=== PATIENT | male | born 1955 | race Caucasian/White ===

== ENCOUNTER 2016-12-12 12:49 | Emergency (ER) | payer OTHER ==
[2016-12-12 13:09] VITALS: BP 117/68; RESP 18; TEMP 97.2
[2016-12-12] MEDS ORDERED: DIPH,PERTUS(ACELL)TETVAC-LF 0.5 ML VIAL IM ONE (13:16)
--- NOTE | 2016-12-12 13:47 | XR ---
EXAMINATION TYPE: XR hand complete LT DATE OF EXAM ORDERED: 12/12/2016 1:31 PM HISTORY: Pain. COMPARISON: None. 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 One surgical clip is present just distal to the metacarpal head of the fourth digit. No fracture or dislocation is seen. IMPRESSION: 1. NO ACUTE OSSEOUS LESION. 2. 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
--- NOTE | 2016-12-12 14:04 | ED ---
Wound/Laceration HPI - General Chief Complaint: Wound/Laceration Stated Complaint: Lac/ 2 fingers Time Seen by Provider: 12/12/16 13:11 Source: patient, RN notes reviewed Mode of arrival: ambulatory Limitations: no limitations - History of Present Illness Initial Comments: 61-year-old male presents to the emergency department with a chief complaint of left finger laceration. Patient states he cut his hand with a utility knife. Patient states that; left eye. Patient states that he noticed increased bleeding site. He should be seen. Patient denies any nausea vomiting fever chills with this. Patient denies any cough cold runny nose. Patient states he was concerned due to the bleeding. Patient denies any other symptoms at this time. Patient denies any recent fever, chills, shortness of breath, chest pain, back pain, abdominal pain, nausea vomiting, numbness or tingling, dysuria or hematuria, constipation or diarrhea, headaches or visual changes, or any other current symptoms. - Related Data Previous Rx's Medication Instructions Recorded Calamine/Zinc Oxide Lotion 1 applic TOPICAL TID 7 Days 12/12/16 [Calamine Lotion] predniSONE 50 mg PO DAILY #5 tab 12/12/16 Allergies Allergy/AdvReac Type Severity Reaction Status Date / Time No Known Allergies Allergy Verified 12/12/16 13:09 Review of Systems ROS Statement: Those systems with pertinent positive or pertinent negative responses have been documented in the HPI. ROS Other: All systems not noted in ROS Statement are negative. Past Medical History Past Medical History: No Reported History History of Any Multi-Drug Resistant Organisms: None Reported Past Surgical History: No Surgical Hx Reported Past Psychological History: No Psychological Hx Reported Smoking Status: Never smoker Past Alcohol Use History: None Reported Past Drug Use History: None Reported General Exam - General Exam Comments Initial Comments: General: The patient is awake and alert, in no distress, and does not appear acutely ill. Neck: The neck is supple, there is no tenderness. Cardiovascular: There is a regular rate and rhythm. No murmur, rub or gallop is appreciated. Respiratory: Lungs are clear to auscultation, respirations are non-labored, breath sounds are equal. No wheezes, stridor, rales, or rhonchi. Musculoskeletal: Sensation intact. 2+ pulses. Left upper joint. Patient has previous amputation to digit foreign 5. She appears to have a once every laceration to the distal aspect of digit number read. A 2 cm laceration to the distal aspect of digit #2. That does extend through the distal aspect of the nail. There is full range of motion. 5 out of 5 muscle strength testing. Neurological: CN II-XII intact, There are no obvious motor or sensory deficits. Coordination appears grossly intact. Speech is normal. Skin: Skin is warm and dry and she does appear to have a pruritic papular rash to the right wrist consistent with possible poison chiquita dermatitis. Psychiatric: Normal mood and affect. Limitations: no limitations Course Vital Signs 12/12/16 13:08 Temperature 97.2 F L Pulse Rate 74 Respiratory 18 Rate Blood Pressure 117/68 O2 Sat by Pulse 100 Oximetry Procedures - Procedures Initial comment: The skin was anesthetized with 1% lidocaine. The laceration was then cleansed with Betadine and irrigated with normal saline. The wound was inspected, and there was no evidence of injury to deep structures. No foreign body was noted in the wound. A total of 2 skin sutures were placed utilizing 5-0 nylon to a 1 cm laceration to the distal left third digit. The skin was anesthetized with 1% lidocaine. The laceration was then cleansed with Betadine and irrigated with normal saline. The wound was inspected, and there was no evidence of injury to deep structures. No foreign body was noted in the wound. A total of 5 skin sutures were placed utilizing 5-0 nylon to the distal aspect of the second left digit that is 2 cm in length. . Medical Decision Making - Medical Decision Making 61-year-old male presents emergency Department chief complaint of left finger laceration. Patient underwent suture care. We discussed return parameters and follow-up. Discussed outpatient questions. He stated he understood and he is in agreement the plan. He will be discharged home. - Radiology Data Radiology results: report reviewed, image reviewed Disposition Clinical Impression: Laceration of left index finger, Laceration of left middle finger, Poison chiquita dermatitis Disposition: HOME SELF-CARE Condition: Stable Instructions: Laceration (ED) Additional Instructions: Please use medication as discussed. Please follow up with family doctor if symptoms have not improved over the next two days. Please return to the emergency room if your symptoms increase or worsen or for any other concerns. Please return to the emergency room in 8-10 days to have sutures removed. Please leave wound covered for the first 24-48 hours and then leave open to air after that time. Please use clean soap and water to clean the suture area to prevent scabbing over the top of your sutures. Please watch for any signs of infection which may include but not limited to increased pain, swelling, redness , fever or chills. Please return to the emergency room if any signs of infection do occur. Please return to the emergency room for any other concerns or complications. Prescriptions: Calamine/Zinc Oxide Lotion [Calamine Lotion] 1 applic TOPICAL TID 7 Days predniSONE 50 mg PO DAILY #5 tab Referrals: Carmelita Smith MD [STAFF PHYSICIAN] - 1-2 days Time of Disposition: 14:03
[2016-12-12 14:13] VITALS: PULSE 80
== END 2016-12-12 14:13 | disposition home or self-care (01) ==
LOC: EC 12:49
DX: S61.213A Laceration without foreign body of left middle finger without damage to nail, initial encounter (principal); S61.211A Laceration without foreign body of left index finger without damage to nail, initial encounter; L23.7 Allergic contact dermatitis due to plants, except food; Z23 Encounter for immunization; W26.0XXA Contact with knife, initial encounter; Y92.009 Unspecified place in unspecified non-institutional (private) residence as the place of occurrence of the external cause
CPT/HCPCS: 12002; 90471; 90715; 99283

== ENCOUNTER 2021-06-03 19:24 | Emergency (ER) | payer MEDICARE, OTHER ==
[2021-06-03 20:27] VITALS: RESP 18
[2021-06-03] MEDS ORDERED: CASIRIVIMAB/IMDEVIMAB (EUA) 1,200 MG in SODIUM CHLORIDE 0.9% 100 ML IVPB ONE (21:15)
[2021-06-03] MEDS ORDERED: SODIUM CHLORIDE 0.9% 50 ML IVPB ONE (21:15)
--- NOTE | 2021-06-03 22:10 | ED ---
URI HPI - General Chief Complaint: Upper Respiratory Infection Stated Complaint: Chest Pain,Fever,Congestion Time Seen by Provider: 06/03/21 20:33 Source: patient, RN notes reviewed Mode of arrival: ambulatory Limitations: no limitations - History of Present Illness Initial Comments: Patient is a 65-year-old male presenting to the emergency Department with complaints of viral symptoms such as fever, chills, diarrhea and some congestion. Patient states his tested positive a few days ago for covid. He denies history of asthma or COPD, is nonsmoker. He denies any chest pain or short of breath. He did take some Tylenol before arrival. He denies any nausea or vomiting, no abdominal pain. He has no further complaints. His vitals are stable upon arrival. - Related Data Previous Rx's Medication Instructions Recorded Calamine/Zinc Oxide Lotion 1 applic TOPICAL TID 7 Days ml 12/12/16 [Calamine Lotion] predniSONE 50 mg PO DAILY #5 tab 12/12/16 Allergies Allergy/AdvReac Type Severity Reaction Status Date / Time ibuprofen [From Motrin] Allergy Rash/Hives Verified 06/03/21 19:50 Review of Systems ROS Statement: Those systems with pertinent positive or pertinent negative responses have been documented in the HPI. ROS Other: All systems not noted in ROS Statement are negative. Past Medical History Past Medical History: No Reported History History of Any Multi-Drug Resistant Organisms: None Reported Past Surgical History: No Surgical Hx Reported Additional Past Surgical History / Comment(s): Right hip replacement 2019, left knee replacement 2019, Past Psychological History: No Psychological Hx Reported Smoking Status: Never smoker Past Alcohol Use History: None Reported Past Drug Use History: None Reported General Exam - General Exam Comments Initial Comments: GENERAL: Patient is well-developed and well-nourished. Patient is nontoxic and in no acu te distress. HEAD: Atraumatic, normocephalic. EYES: Pupils equal round and reactive to light, extraocular movements intact, sclera anicteric, conjunctiva are normal. Eyelids were unremarkable. ENT: Moist mucous membranes. NECK: Normal range of motion, supple without lymphadenopathy or JVD. LUNGS: Unlabored respirations. Breath sounds clear to auscultation bilaterally and equal. No wheezes rales or rhonchi. HEART: Regular rate and rhythm without murmurs, rubs or gallops. ABDOMEN: Soft, nontender, normoactive bowel sounds. No guarding, no rebound. No masses appreciated. MUSCULOSKELETAL: Normal extremities with adequate strength and normal range of motion, no pitting or edema. No clubbing or cyanosis. NEUROLOGICAL: Patient is alert and oriented x 3. SKIN: Warm, Dry, normal turgor, no rashes or lesions noted. Limitations: no limitations Course Vital Signs 06/03/21 06/03/21 06/03/21 19:43 20:24 21:15 Temperature 99.1 F Pulse Rate 71 79 Respiratory 20 18 18 Rate Blood Pressure 153/78 131/78 O2 Sat by Pulse 96 96 Oximetry Medical Decision Making - Medical Decision Making Patient is 65-year-old healthy male presenting with viral type symptoms over the past 4-5 days. His also has similar symptoms. Patient's Covid test is positive today. His vitals are stable, exam is unremarkable. He does qualify for monoclonal antibodies, he received these today without adverse side effects. His vital signs remained stable. Patient is stable for discharge. He can continue to treat his symptoms over the counter medications, follow up with his primary care. - Lab Data Lab Results 06/03/21 Range/Units 20:09 Coronavirus (PCR) Detected A (Not Detectd) Disposition Clinical Impression: COVID-19 Disposition: HOME SELF-CARE Condition: Stable Instructions (If sedation given, give patient instructions): Coronavirus Di aidane 2019 (COVID-19) Additional Instructions: Please return to the Emergency Department if symptoms worsen or any other concerns. Continue to take Tylenol for any fevers or body aches. I encouraged lots of fluids. Follow-up with your primary care as needed. Is patient prescribed a controlled substance at d/c from ED?: No Referrals: Lenard Orlando DO [Primary Care Provider] - 1-2 days Time of Disposition: 22:23
[2021-06-03 22:41] VITALS: BP 135/81; PULSE 78; TEMP 98.3
== END 2021-06-03 22:41 | disposition home or self-care (01) ==
LOC: SUPCPDRO 19:24 → EC 19:24
DX: U07.1 COVID-19 (principal); Z88.6 Allergy status to analgesic agent
CPT/HCPCS: 99283; 96365; 87635; Q0243

== ENCOUNTER 2021-11-08 11:44 | Emergency (ER) | payer MEDICARE ==
[2021-11-08 12:00] VITALS: BP 148/83; PULSE 85; RESP 18; TEMP 98.3
[2021-11-08] MEDS ORDERED: LIDOCAINE 1%-EPI 1:100,000 20 ML VIAL SQ STA (12:02)
[2021-11-08] MEDS ORDERED: DIPH,PERTUS(ACELL)TETVAC-LF 0.5 ML VIAL IM ONE (12:17)
--- NOTE | 2021-11-08 12:18 | ED ---
General Adult HPI - General Chief complaint: Head Injury Stated complaint: head injury Time Seen by Provider: 11/08/21 12:02 Source: patient Mode of arrival: ambulatory Limitations: no limitations - History of Present Illness Initial comments: Dictation was produced using [employer] dictation software. please excuse any grammatical, word or spelling errors. Chief Complaint: 66-year-old male presents emergency department for scalp laceration. History of Present Illness: Patient 66-year-old male presents to the emergency department for scalp laceration. He was at work when he stood up and bumped his head on the bottom of a drop spray. Patient is a former. Patient denies any loss of consciousness. He does not take any antiplatelet medication medications. Not sure when his last tetanus shot was. The ROS documented in this emergency department record has been reviewed and confirmed by me. Those systems with pertinent positive or negative responses have been documented in the HPI. All other systems are other negative and/or noncontributory. PHYSICAL EXAM: General Impression: Alert and oriented x3, not in acute distress HEENT: Normocephalic atraumatic, 4 cm laceration to the right superior scalp, extra-ocular movements intact, pupils equal and reactive to light bilaterally, mucous membranes moist. Cardiovascular: Heart regular rate and rhythm Chest: Able to complete full sentences, no retractions, no tachypnea Musculoskeletal: Pulses present and equal in all extremities, no peripheral edema Motor: no focal deficits noted Neurological: CN II-XII grossly intact, no focal motor or sensory deficits noted Skin: Intact with no visualized rashes Psych: Normal affect and mood ED course: 66-year-old male presents to the emergency department for scalp laceration. Patient's well-appearing. No concerns for age cranial injury. Signs upon arrival are within acceptable limits. Tetanus updated. Laceration repaired at bedside using nylon sutures. Patient tolerated laceration repair well. Patient be discharged with instructions to have sutures removed in 5-7 days. - Related Data Previous Rx's Medication Instructions Recorded Calamine/Zinc Oxide Lotion 1 applic TOPICAL TID 7 Days ml 12/12/16 [Calamine Lotion] predniSONE 50 mg PO DAILY #5 tab 12/12/16 Allergies Allergy/AdvReac Type Severity Reaction Status Date / Time ibuprofen [From Motrin] Allergy Rash/Hives Verified 11/08/21 12:00 Review of Systems ROS Statement: Those systems with pertinent positive or pertinent negative responses have been documented in the HPI. ROS Other: All systems not noted in ROS Statement are negative. Past Medical History Past Medical History: No Reported History History of Any Multi-Drug Resistant Organisms: None Reported Past Surgical History: No Surgical Hx Reported Additional Past Surgical History / Comment(s): Right hip replacement 2019, left knee replacement 2019, Past Psychological History: No Psychological Hx Reported Smoking Status: Never smoker Past Alcohol Use History: None Reported Past Drug Use History: None Reported General Exam Limitations: no limitations Course Vital Signs 11/08/21 11:57 Temperature 98.3 F Pulse Rate 85 Respiratory 18 Rate Blood Pressure 148/83 O2 Sat by Pulse 97 Oximetry Procedures - Laceration Laceration #1 Consent Obtained: verbal consent Indication: laceration Site: scalp Description: linear Anesthetic Used: lidocaine 1%, with epi Anesthesia Technique: local infiltration Size of Sutures: 5-0 Number of Sutures: 5 Patient Tolerated Procedure: well Disposition Clinical Impression: Scalp laceration Disposition: HOME SELF-CARE Condition: Good Instructions (If sedation given, give patient instructions): Laceration (DC) Additional Instructions: suture removal in 5-7 days Is patient prescribed a controlled substance at d/c from ED?: No Referrals: Lenard Orlando DO [Primary Care Provider] - 1-2 days
== END 2021-11-08 12:52 | disposition home or self-care (01) ==
LOC: EC 11:44
DX: S01.01XA Laceration without foreign body of scalp, initial encounter (principal); Z88.6 Allergy status to analgesic agent; Z23 Encounter for immunization; W22.8XXA Striking against or struck by other objects, initial encounter
CPT/HCPCS: 12001; 90471; 90715; 99283

== ENCOUNTER 2023-06-23 11:13 | Emergency (ER) | payer MEDICARE ==
--- NOTE | 2023-06-23 11:46 | ED ---
General Adult HPI - General Source: patient, RN notes reviewed Mode of arrival: ambulatory Limitations: no limitations <Lenard Davis - Last Filed: 06/23/23 11:44> <Linus Chiang - Last Filed: 06/23/23 14:11> - General Stated complaint: double vision, lightheaded Time Seen by Provider: 06/23/23 11:45 - History of Present Illness Initial comments: 68-year-old male presents emergency Department with chief complaint of an episode of double vision. Patient states she was driving when she started having double vision and lasted 10 minutes. He denies any associated headache, lightheadedness, dizziness or any focal weakness. He does admit that he has some mild chest discomfort at this time is double vision has resolved. (Lenard Davis) - Related Data Home Medications Medication Instructions Recorded Confirmed No Known Home Medications 06/23/23 06/23/23 Allergies Allergy/AdvReac Type Severity Reaction Status Date / Time ibuprofen [From Motrin] Allergy Rash/Hives Verified 06/23/23 13:41 shellfish derived [Shrimp] Allergy Rash/Hives Verified 06/23/23 13:41 Review of Systems ROS Other: All systems not noted in ROS Statement are negative. <Lenard Davis - Last Filed: 06/23/23 11:44> ROS Other: All systems not noted in ROS Statement are negative. <Linus Chiang - Last Filed: 06/23/23 14:11> ROS Statement: Those systems with pertinent positive or pertinent negative responses have been documented in the HPI. Past Medical History Past Medical History: No Reported History History of Any Multi-Drug Resistant Organisms: None Reported Past Surgical History: No Surgical Hx Reported Additional Past Surgical History / Comment(s): Right hip replacement 2019, left knee replacement 2019, Past Psychological History: No Psychological Hx Reported Smoking Status: Never smoker Past Alcohol Use History: None Reported Past Drug Use History: None Reported <Lenard Davis - Last Filed: 06/23/23 11:44> General Exam Limitations: no limitations General appearance: alert, in no apparent distress Head exam: Present: atraumatic, normocephalic, normal inspection <Lenard Davis - Last Filed: 06/23/23 11:44> Eye exam: Present: normal appearance, PERRL, EOMI. Absent: nystagmus ENT exam: Present: normal exam Neck exam: Present: normal inspection. Absent: tenderness, meningismus Respiratory exam: Present: normal lung sounds bilaterally. Absent: respiratory distress, wheezes Cardiovascular Exam: Present: regular rate, normal rhythm GI/Abdominal exam: Present: soft. Absent: distended, tenderness, guarding Extremities exam: Present: normal inspection, normal capillary refill. Absent: pedal edema, calf tenderness Neurological exam: Present: alert, oriented X3, CN II-XII intact, other (NIH is 0, no ataxia). Absent: motor sensory deficit Psychiatric exam: Present: normal affect, normal mood Skin exam: Present: warm, dry, intact <Linus Chiagn - Last Filed: 06/23/23 14:11> - General Exam Comments Initial Comments: Visual Physical Exam Vital signs reviewed General: Well-appearing, nontoxic, no acute distress. Head: Normocephalic, atraumatic Eyes: PERRLA, EOMI ENT: Airway patent Chest: Nonlabored breathing Skin: No visual rash, normal skin tone Neuro: Alert and oriented 3 Musculoskeletal: No gross abnormalities (Lenard Davis) Course Vital Signs 06/23/23 06/23/23 11:41 12:29 Temperature 98.1 F Pulse Rate 69 69 Respiratory 16 18 Rate Blood Pressure 142/90 137/89 O2 Sat by Pulse 98 97 Oximetry Medical Decision Making <Lenard Davis - Last Filed: 06/23/23 11:44> - Lab Data Result diagrams: 06/23/23 12:32 06/23/23 12:32 <Lnius Chiang - Last Filed: 06/23/23 14:11> - Medical Decision Making I completed the quick note portion of this chart signed Lenard Davis PA-C (Lenard Daivs) Was pt. sent in by a medical professional or institution (JESSICA Armando, RETAIL BAKERY MANAGER, urgent care, hospital, or [place] [facility] facility...) When possible be specific @ -No Did you speak to anyone other than the patient for history (EMS, parent, family, police, friend...)? What history was obtained from this source @ -No Did you review nursing and triage notes (agree or disagree)? Why? @ -I reviewed and agree with nursing and triage notes Were old charts reviewed (outside hosp., previous admission, EMS record, old EKG, old radiological studies, urgent care reports/EKG's, [place] [facility] facility records)? Report findings @ -No old charts were reviewed Differential Diagnosis (chest pain, altered mental status, abdominal pain women, abdominal pain men, vaginal bleeding, weakness, fever, dyspnea, syncope, headache, dizziness, GI bleed, back pain, seizure, CVA, palpatations, mental health, musculoskeletal)? @ -[Differential CVA Ischemic stroke, hemorrhagic stroke, brain tumor, atypical migraine, Wernicke's encephalopathy, seizure, multiple sclerosis, meningitis, encephalitis, hypoglycemia, Guillain-Luna, electrolytes disturbance, myasthenia gravis.... This is not meant to be an all-inclusive list EKG interpreted by me (3pts min.). @Cagey: Sinus rhythm rate of 71, IN interval 111, QRS duration 86, QTC 390 artifact in V2 otherwise normal EKG. X-rays interpreted by me (1pt min.). @ -[Chest x-ray within normal limits acute findings CT interpreted by me (1pt min.). @ -[CT brain negative for intracranial hemorrhage or mass effect U/S interpreted by me (1pt. min.). @ -None done What testing was considered but not performed or refused? (CT, X-rays, U/S, labs)? Why? @ -None What meds were considered but not given or refused? Why? @ -None Did you discuss the management of the patient with other professionals (professionals i.e. , PA, RETAIL BAKERY MANAGER, lab, RT, psych nurse, medical social worker, senior pricing analyst, teacher, air defense artillery officer, case preparer and liner)? Give summary @ -No Was smoking cessation discussed for >3mins.? @ -[No] Was critical care preformed (if so, how long)? @ -[No] Were there social determinants of health that impacted care today? How? (Homelessness, low income, unemployed, alcoholism, drug addiction, transportation, low edu. Level, literacy, decrease access to med. care, fpc, rehab)? @ -[No] Was there de-escalation of care discussed even if they declined (Discuss DNR or withdrawal of care, Hospice)? DNR status @ -[No] What co-morbidities impacted this encounter? (DM, HTN, Smoking, COPD, CAD, Cancer, CVA, ARF, Chemo, Hep., AIDS, mental health diagnosis, sleep apnea, mor bid obesity)? @ -[None] Was patient admitted / discharged? Hospital course, mention meds given and route, prescriptions, significant lab abnormalities, going to OR and other pertinent info. @68-year-old male with an episode of double vision which lasted approximately 10 minutes, completely resolved. No focal neurological findings, stable vitals, NIH is 0. Patient is in sinus rhythm. He has normal CBC, normal CMP, negative troponin. His chest x-ray and CT without contrast is negative for acute findings. Patient's symptoms completely resolved and he is eager for discharge. He will monitor for any change or new symptoms and return to the emergency department Undiagnosed new problem with uncertain prognosis? @ -[No] Drug Therapy requiring intensive monitoring for toxicity (Heparin, Nitro, Insulin, Cardizem)? @ -[No] Were any procedures done? @ -[No] Diagnosis/symptom? @ -[Double vision, resolved Acute, or Chronic, or Acute on Chronic? @ -[Acute Uncomplicated (without systemic symptoms) or Complicated (systemic symptoms)? @ -[default] Side effects of treatment? @ -[No] Exacerbation, Progression, or Severe Exacerbation? @ -[No] Poses a threat to life or bodily function? How? (Chest pain, [place], [place], pneumonia, PE, COPD, DKA, ARF, appy, cholecystitis, CVA, Diverticulitis, Homicidal, Suicidal, threat to staff... and all critical care pts) @ -[Low risk at this time (iLnus Chiang) - Lab Data Lab Results 06/23/23 06/23/23 06/23/23 Range/Units 12:32 12:32 12:32 WBC 11.3 H (3.8-10.6) k/uL RBC 5.46 (4.30-5.90) m/uL Hgb 16.8 (13.0-17.5) gm/dL Hct 50.6 (39.0-53.0) % MCV 92.6 (80.0-100.0) fL MCH 30.7 (25.0-35.0) pg MCHC 33.2 (31.0-37.0) g/dL RDW 13.5 (11.5-15.5) % Plt Count 296 (150-450) k/uL MPV 8.0 Neutrophils % 72 % Lymphocytes % 20 % Monocytes % 4 % Eosinophils % 1 % Basophils % 0 % Neutrophils # 8.2 H (1.3-7.7) k/uL Lymphocytes # 2.3 (1.0-4.8) k/uL Monocytes # 0.4 (0-1.0) k/uL Eosinophils # 0.2 (0-0.7) k/uL Basophils # 0.1 (0-0.2) k/uL PT 12.0 (10.0-12.5) sec INR 1.1 (<1.2) APTT 24.6 (22.0-30.0) sec Sodium 138 (137-145) mmol/L Potassium 4.5 (3.5-5.1) mmol/L Chloride 106 (98-107) mmol/L Carbon Dioxide 23 (22-30) mmol/L Anion Gap 9 mmol/L BUN 18 (9-20) mg/dL Creatinine 0.78 (0.66-1.25) mg/dL Est GFR (CKD-EPI)AfAm >90 (>60 ml/min/1.73 sqM) Est GFR (CKD-EPI)NonAf >90 (>60 ml/min/1.73 sqM) Glucose 95 (74-99) mg/dL Calcium 9.5 (8.4-10.2) mg/dL Magnesium 2.2 (1.6-2.3) mg/dL Total Bilirubin 0.7 (0.2-1.3) mg/dL AST 27 (17-59) U/L ALT 27 (4-49) U/L Alkaline Phosphatase 75 (38-126) U/L Troponin I (0.000-0.034) ng/mL Total Protein 6.5 (6.3-8.2) g/dL Albumin 3.9 (3.5-5.0) g/dL 06/23/23 Range/Units 12:32 WBC (3.8-10.6) k/uL RBC (4.30-5.90) m/uL Hgb (13.0-17.5) gm/dL Hct (39.0-53.0) % MCV (80.0-100.0) fL MCH (25.0-35.0) pg MCHC (31.0-37.0) g/dL RDW (11.5-15.5) % Plt Count (150-450) k/uL MPV Neutrophils % % Lymphocytes % % Monocytes % % Eosinophils % % Basophils % % Neutrophils # (1.3-7.7) k/uL Lymphocytes # (1.0-4.8) k/uL Monocytes # (0-1.0) k/uL Eosinophils # (0-0.7) k/uL Basophils # (0-0.2) k/uL PT (10.0-12.5) sec INR (<1.2) APTT (22.0-30.0) sec Sodium (137-145) mmol/L Potassium (3.5-5.1) mmol/L Chloride (98-107) mmol/L Carbon Dioxide (22-30) mmol/L Anion Gap mmol/L BUN (9-20) mg/dL Creatinine (0.66-1.25) mg/dL Est GFR (CKD-EPI)AfAm (>60 ml/min/1.73 sqM) Est GFR (CKD-EPI)NonAf (>60 ml/min/1.73 sqM) Glucose (74-99) mg/dL Calcium (8.4-10.2) mg/dL Magnesium (1.6-2.3) mg/dL Total Bilirubin (0.2-1.3) mg/dL AST (17-59) U/L ALT (4-49) U/L Alkaline Phosphatase (38-126) U/L Troponin I <0.012 (0.000-0.034) ng/mL Total Protein (6.3-8.2) g/dL Albumin (3.5-5.0) g/dL Disposition <Lenard Davis M - Last Filed: 06/23/23 11:44> Is patient prescribed a controlled substance at d/c from ED?: No Time of Disposition: 14:11 <Linus Chiang - Last Filed: 06/23/23 14:11> Clinical Impression: Double vision Disposition: HOME SELF-CARE Condition: Good Instructions (If sedation given, give patient instructions): Blurred Vision (ED) Referrals: Temi Coe, LUCILA [REFERRING] - 1-2 days
[2023-06-23 12:01] VITALS: PULSE 69; TEMP 98.1
[2023-06-23 12:47] VITALS: RESP 18
[2023-06-23 12:54] LABS: Basophils # (A) 0.1 k/uL (0-0.2); Basophils % (A) 0 %; Eosinophils # (A) 0.2 k/uL (0-0.7); Eosinophils % (A) 1 %; HCT 50.6 % (39.0-53.0); HGB 16.8 gm/dL (13.0-17.5); Lymphocytes # (A) 2.3 k/uL (1.0-4.8); Lymphocytes % (A) 20 %; MCH 30.7 pg (25.0-35.0); MCHC 33.2 g/dL (31.0-37.0); MCV 92.6 fL (80.0-100.0); Monocytes # (A) 0.4 k/uL (0-1.0); Monocytes % (A) 4 %; Neutrophils # (A) 8.2 k/uL (1.3-7.7); Neutrophils % (A) 72 %; Platelet Count 296 k/uL (150-450); RBC 5.46 m/uL (4.30-5.90); RDW 13.5 % (11.5-15.5); WBC 11.3 k/uL (3.8-10.6)
--- NOTE | 2023-06-23 13:14 | XR ---
EXAMINATION TYPE: XR chest 2V DATE OF EXAM: 06/23/2023 COMPARISON: NONE TECHNIQUE: PA and lateral views submitted. HISTORY: Chest pain FINDINGS: The lungs are clear and there is no pneumothorax, pleural effusion, or focal pneumonia. Heart size normal and no overt failure. Osseous structures demonstrate hypertrophic and degenerative changes of the spine. Hypertrophic arthropathy AC joint. IMPRESSION: 1. No acute process.
[2023-06-23 13:18] LABS: INR 1.1 (<1.2); Partial Thromboplastin Time 24.6 sec (22.0-30.0)
--- NOTE | 2023-06-23 13:24 | CT ---
EXAMINATION TYPE: CT brain wo con DATE OF EXAM: 06/23/2023 COMPARISON: None HISTORY: Slurred speech, Numbness CT DLP: 1094.9 mGycm Automated exposure control for dose reduction was used. FINDINGS: There is no midline shift or mass effect mild generalized degenerative change. Faint low attenuation in the white matter to small to characterize and nonspecific. No acute hemorrhage. Calvarium intact. Changes of mild chronic sinusitis. Orbits symmetric. Craniocervical junction mainta ined. 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 IF CLINICAL CONCERN FOR ACUTE ISCHEMIA CORRELATE WITH MRI CLINICALLY WARRANTED.
[2023-06-23 13:36] LABS: ALT 27 U/L (4-49); AST 27 U/L (17-59); African American GFR (CKD) >90 (>60 ml/min/1.73 sqM); Albumin 3.9 g/dL (3.5-5.0); Anion Gap 9 mmol/L; Blood Urea Nitrogen 18 mg/dL (9-20); Calcium 9.5 mg/dL (8.4-10.2); Carbon Dioxide 23 mmol/L (22-30); Chloride 106 mmol/L (98-107); Glucose 95 mg/dL (74-99); Magnesium 2.2 mg/dL (1.6-2.3); Non-African American GFR(CKD) >90 (>60 ml/min/1.73 sqM); Potassium 4.5 mmol/L (3.5-5.1); Sodium 138 mmol/L (137-145); Total Bilirubin 0.7 mg/dL (0.2-1.3); Total Protein 6.5 g/dL (6.3-8.2)
[2023-06-23 13:38] LABS: Alkaline Phosphatase 75 U/L (38-126)
[2023-06-23 14:47] VITALS: BP 142/89
== END 2023-06-23 14:49 | disposition home or self-care (01) ==
LOC: EC 11:13
DX: H53.2 Diplopia (principal); Z88.6 Allergy status to analgesic agent; Z91.013 Allergy to seafood
CPT/HCPCS: 36415; 70450; 71046; 80053; 83735; 84484; 85025; 85610; 85730; 93005; 99285

== ENCOUNTER → 2024-01-13 | Outpatient (CLI) | payer MEDICARE, OTHER ==
--- NOTE | 2024-01-13 10:13 | MR ---
EXAMINATION TYPE: MR lumbar spine wo con DATE OF EXAM: 01/13/2024 COMPARISON: None HISTORY: Lower back pain, LLE radiculopathy. TECHNIQUE: Multiplanar, multisequence images of the lumbar spine were acquired without IV contrast. L1-L2: Normal disc appearance without desiccation. No herniation, protrusion or disc bulging. No ca nal stenosis is present. Foramina are patent bilaterally. L2-L3: Normal disc appearance without desiccation. No herniation, protrusion or disc bulging. No ca nal stenosis is present. Foramina are patent bilaterally. L3-L4: Normal disc appearance without desiccation. No herniation, protrusion or disc bulging. No ca nal stenosis is present. Foramina are patent bilaterally. L4-L5: Mild disc desiccation with posterior disc bulge. Hypertrophy of ligamentum flavum and facet ester int arthropathy resulting in mild central stenosis. Left greater than right foraminal encroachment. L5-S1: Severe disc desiccation with posterior disc bulge. Bilateral lateral recess stenosis and bilat eral foraminal encroachment. No evidence of central stenosis at this time. Lumbar segments are intact. Rudimentary S1-S2 disc. No paraspinal masses are identified. Conus medu llaris has a normal appearance. IMPRESSION: 1. Degenerative disc disease as discussed as well as central stenosis as outlined above.
== END | disposition home or self-care (01) ==
LOC: RADMRIMAIN 06:07
PROVIDERS: ATTEND Orthopaedic Surgery
DX: M48.061 Spinal stenosis, lumbar region without neurogenic claudication (principal); M51.16 Intervertebral disc disorders with radiculopathy, lumbar region
CPT/HCPCS: 72148

== ENCOUNTER 2024-03-29 12:07 | Emergency (ER) | payer MEDICARE, OTHER ==
[2024-03-29 12:11] VITALS: BP 160/100; PULSE 76; RESP 20; TEMP 97.4
--- NOTE | 2024-03-29 12:38 | XR ---
EXAMINATION TYPE: XR hand complete LT DATE OF EXAM: 03/29/2024 12:34 PM CLINICAL INDICATION: Male, 68 years old with history of Finger injury; COMPARISON: 12/12/2016 TECHNIQUE: XR hand complete LT Frontal, lateral and oblique views were obtained. FINDINGS: Indication of the fourth and fifth digits at the metacarpophalangeal joints. Surgical clip is present. There is soft tissue injury to third digit volar aspect hip. No radiopaque foreign body o r fracture. Normal alignment of the visualized joints. No acute osseous pathology is identified. No evidence of soft tissue swelling. No significant degeneration IMPRESSION: 1. Soft tissue injury of the third digit for aspect distally without radiopaque foreign body or frac ture. . 2. Postsurgical changes fourth and fifth digit unchanged from prior.
--- NOTE | 2024-03-29 13:33 | ED ---
Upper Extremity HPI - General Chief Complaint: Extremity Injury, Upper Stated Complaint: Left finger injury Time Seen by Provider: 03/29/24 13:32 Source: patient, RN notes reviewed Mode of arrival: ambulatory Limitations: no limitations - History of Present Illness Initial Comments: 68 year old male presented to the ER with a chief complaint of a left third digit injury. Patient was working on a tractor using a wrench when it accidentally crushed his finger in between the wrench and metal. Patient state she has a laceration to pad of third digit. Tetanus UTD. No blood thinner use. Denies any limited range of motion. Bleeding is controlled at this time with compression. No other injuries or complaints. No paresthesias. - Related Data Home Medications Medication Instructions Recorded Confirmed No Known Home Medications 06/23/23 06/23/23 Allergies Allergy/AdvReac Type Severity Reaction Status Date / Time ibuprofen [From Motrin] Allergy Rash/Hives Verified 03/29/24 12:10 shellfish derived [Shrimp] Allergy Rash/Hives Verified 03/29/24 12:10 Review of Systems ROS Statement: Those systems with pertinent positive or pertinent negative responses have been documented in the HPI. ROS Other: All systems not noted in ROS Statement are negative. Past Medical History Past Medical History: No Reported History History of Any Multi-Drug Resistant Organisms: None Reported Past Surgical History: No Surgical Hx Reported Additional Past Surgical History / Comment(s): Right hip replacement 2019, left knee replacement 2019, Past Psychological History: No Psychological Hx Reported Smoking Status: Never smoker Past Alcohol Use History: None Reported Past Drug Use History: None Reported General Exam Limitations: no limitations General appearance: alert, in no apparent distress Respiratory exam: Present: normal lung sounds bilaterally. Absent: respiratory distress, wheezes, rales, rhonchi, stridor Cardiovascular Exam: Present: regular rate, normal rhythm, normal heart sounds. Absent: systolic murmur, diastolic murmur, rubs, gallop, clicks Extremities exam: Present: normal inspection (Surgically absent left fourth and fifth digit at MCP joint. Healed surgical incision.), full ROM, normal capillary refill, other (2 cm flap laceration to third distal digit finger pad. Minimal active bleeding. Patient has full active range of motion. 2+ left radial pulse). Absent: tenderness, pedal edema, joint swelling, calf tenderness Neurological exam: Present: alert, oriented X3, CN II-XII intact Skin exam: Present: warm, dry, intact, normal color. Absent: rash Course Vital Signs 03/29/24 12:08 Temperature 97.4 F L Pulse Rate 76 Respiratory 20 Rate Blood Pressure 160/100 O2 Sat by Pulse 99 Oximetry Procedures - Laceration Laceration #1 Consent Obtained: verbal consent Indication: laceration Site: hand Size (cm): 2 Description: flap Depth: simple, single layer Anesthetic Used: lidocaine 1%, without epi Anesthesia Technique: local infiltration Amount (mls): 1 Pre-repair: wound explored, irrigated extensively, deep structures intact Type of Sutures: nylon Size of Sutures: 4-0 Number of Sutures: 3 Technique: simple, interrupted Patient Tolerated Procedure: well Medical Decision Making - Medical Decision Making Was pt. sent in by a medical professional or institution (, PA, SEMICONDUCTOR WAFERS SAW OPERATOR, urgent care, hospital, or [facility]...) When possible be specific @ -No Did you speak to anyone other than the patient for history (EMS, parent, family, police, friend...)? What history was obtained from this source @ -No Did you review nursing and triage notes (agree or disagree)? Why? @ -I reviewed and agree with nursing and triage notes Were old charts reviewed (outside hosp., previous admission, EMS record, old EKG, old radiological studies, urgent care reports/EKG's, [facility] records)? Report findings @ -No old charts were reviewed Differential Diagnosis (chest pain, altered mental status, abdominal pain women, abdominal pain men, vaginal bleeding, weakness, fever, dyspnea, syncope, headache, dizziness, GI bleed, back pain, seizure, CVA, palpatations, mental health, musculoskeletal)? @ -Laceration, abrasion, contusion, avulsion, foreign body this list is not meant to be all-inclusive EKG interpreted by me (3pts min.). @ -None X-rays interpreted by me (1pt min.). @ -X-ray of left hand negative for acute osseous process. Soft tissue injury to third distal digit. No radiopaque foreign body. CT interpreted by me (1pt min.). @ -None done U/S interpreted by me (1pt. min.). @ -None done What testing was considered but not performed or refused? (CT, X-rays, U/S, labs)? Why? @ -None What meds were considered but not given or refused? Why? @ -None Did you discuss the management of the patient with other professionals (professionals i.e. , JESSICA, SEMICONDUCTOR WAFERS SAW OPERATOR, lab, RT, psych nurse, director of social media marketing, generation manager, teacher, motorized squad commanding officer, nurse case manager)? Give summary @ -No Was smoking cessation discussed for >3mins.? @ -No Was critical care preformed (if so, how long)? @ -No Were there social determinants of health that impacted care today? How? (Homelessness, low income, unemployed, alcoholism, drug addiction, transportation, low edu. Level, literacy, decrease access to med. care, assisted, rehab)? @ -No Was there de-escalation of care discussed even if they declined (Discuss DNR or withdrawal of care, Hospice)? DNR status @ -No What co-morbidities impacted this encounter? (DM, HTN, Smoking, COPD, CAD, Cancer, CVA, ARF, Chemo, Hep., AIDS, mental health diagnosis, sleep apnea, morbid obesity)? @ -None Was patient admitted / discharged? Hospital course, mention meds given and route, prescriptions, significant lab abnormalities, going to OR and other pertinent info. @ -Discharge. 68-year-old male presented to ER with a chief complaint of left third digit injury. History and physical exam completed. Vitals within normal limits. Patient in no signs of acute distress and nontoxic-appearing. Left upper extremity neurovascular intact. There is a 2 cm flap laceration to distal left third digit pad. Minimal active bleeding. Patient has full active range of motion. X-rays obtained negative for acute osseous process. No radiopaque foreign bodies. Tetanus is up-to-date. Wound closed, see note above. Suture care and return parameters discussed. Patient discharged in stable condition with follow-up to PCP. Patient expressed understanding agree with care plan. Case discussed with ED attending, Dr. Sorenson. Undiagnosed new problem with uncertain prognosis? @ -No Drug Therapy requiring intensive monitoring for toxicity (Heparin, Nitro, Insulin, Cardizem)? @ -No Were any procedures done? @ -Yes Diagnosis/symptom? @ -Laceration Acute, or Chronic, or Acute on Chronic? @ -Acute Uncomplicated (without systemic symptoms) or Complicated (systemic symptoms)? @ -Uncomplicated Side effects of treatment? @ -No Exacerbation, Progression, or Severe Exacerbation? @ -No Poses a threat to life or bodily function? How? (Chest pain, [place], [place], pneumonia, PE, COPD, DKA, ARF, appy, cholecystitis, CVA, Diverticulitis, Homicidal, Suicidal, threat to staff... and all critical care pts) @ -No - Radiology Data Radiology results: report reviewed, image reviewed Disposition Clinical Impression: Laceration Disposition: HOME SELF-CARE Condition: Stable Instructions (If sedation given, give patient instructions): Care For Your Stitches (DC) Additional Instructions: Have sutures removed in 10 to 14 days. Keep area clean and dry. Monitor for signs of infection including surrounding redness, thick drainage or increase in pain and swelling. Follow-up with PCP. Return to the ER for any new or worsening concerns. Is patient prescribed a controlled substance at d/c from ED?: No Referrals: Makayla Mcclain MD [Primary Care Provider] - 1-2 days Time of Disposition: 13:33
== END 2024-03-29 13:51 | disposition home or self-care (01) ==
LOC: EC 12:07
CPT/HCPCS: 12001; 99283